=== PATIENT | male | born 1990 ===

== ENCOUNTER 2019-05-19 21:16 | Emergency (ER) | payer SELFPAY ==
[2019-05-19] MEDS ORDERED: Sodium Chloride 0.9% 2.5 ML Syringe FLUSH PRN (21:33)
[2019-05-19] MEDS ORDERED: Albuterol/Ipratropium 3.0-0.5 MG/3 ML Neb Soln NEB ONE ×2 (21:33→23:04)
[2019-05-19] MEDS ORDERED: Sodium Chloride 0.9% 10 ML Syringe FLUSH PRN (21:33)
[2019-05-19] MEDS ORDERED: methylPREDNISolone Sodium Succinate 125 MG/2 ML SDV IVPUSH ONE (21:33)
--- NOTE | 2019-05-19 21:37 | EDM.PDOC ---
ED HPI GENERAL MEDICAL PROBLEM - General Chief Complaint: Respiratory Problem Stated Complaint: ASTIMA ATTACK Time Seen by Provider: 05/19/19 21:27 - History of Present Illness INITIAL COMMENTS - FREE TEXT/NARRATIVE: HISTORY AND PHYSICAL: History of present illness: The patient is a 29-year-old male with a known history of asthma who says his asthma has been doing much better since he has been taking better care of himself and he is plugged in with primary care here and presents with 2 days of asthma exacerbation. Patient has albuterol nebs at home and a rescue inhaler and says that it is not been working and he has not had flu symptoms such as fever or productive cough vomiting or diarrhea. He does not have a sore throat and he did not get his influenza shot this year. He is eating and drinking normally and he called EMS because he felt more short of breath and wanted evaluation. He received a DuoNeb in route and says that that definitely helped more than the nebs he has at home. He has no chest pain currently Review of systems: As per history of present illness and below otherwise all systems reviewed and negative. Past medical history: As per history of present illness and as reviewed below otherwise noncontributory. Surgical history: As per history of present illness and as reviewed below otherwise noncontributory. Social history: No reported history of drug or alcohol abuse. Family history: As per history of present illness and as reviewed below otherwise noncontributory. Physical exam: General: Well-developed well-nourished mildly overweight man who is speaking clearly and easily in the ED without breathlessness and vital signs are noted by me HEENT: Atraumatic, normocephalic, pupils reactive, negative for conjunctival pallor or scleral icterus, mucous membranes moist, throat clear, neck supple, nontender, trachea midline. Lungs: Diminished breath sounds at bilateral bases and scattered wheezing and rhonchi throughout all lung frankel but no work of breathing or stridor breath sounds equal bilaterally, chest nontender. Heart: S1S2, regular, rhythm no overt murmurs Abdomen: Soft, nondistended, nontender. Negative for masses or hepatosplenomegaly. Negative for costovertebral tenderness. Pelvis: Stable nontender. Genitourinary: Deferred. Rectal: Deferred. Extremities: Atraumatic, negative for cords or calf pain. Neurovascular unremarkable. No pedal edema or leg asymmetry Neuro: Awake, alert, oriented. Cranial nerves II through XII unremarkable. Cerebellum unremarkable. Motor and sensory unremarkable throughout. Exam nonfocal. Diagnostics: Influenza chest x-ray Therapeutics: IV fluids DuoNeb Solu-Medrol Discussed with the patient his blood pressure and need to follow-up with his primary care physician for evaluation of that further and he states understanding It has improved since he has been here but it is still borderline. On reevaluation the patient is moving air better and not wheezing but still is somewhat tight but says he feels better and would like to go home. I will give him another nebulizer before home. He only has the albuterol for his machine at home so I will give him some duo nebs to utilize as well as prednisone and stressed the importance of follow-up and he states understanding. Impression: Acute asthma exacerbation Definitive disposition and diagnosis as appropriate pending reevaluation and review of above. Chest Pain Score (Numeric/FACES): 3 - Related Data Allergies Allergy/AdvReac Type Severity Reaction Status Date / Time No Known Allergies Allergy Verified 05/19/19 21:22 Home Meds: Home Meds Albuterol Sulfate [Albuterol Sulfate Hfa] 2 puff INH ASDIRECTED 05/19/19 [ History] Albuterol [Proventil Neb Soln] 3 ml NEB ASDIRECTED 05/19/19 [History] Fluticasone/Salmeterol [Advair 250-50 Diskus] 1 puff INH DAILY 05/19/19 [History ] Past Medical History Respiratory History: Reports: Asthma - Infectious Disease History Infectious Disease History: Reports: Chicken Pox Social & Family History - Family History Family Medical History: Noncontributory - Tobacco Use Smoking Status *Q: Former Smoker Used Tobacco, but Quit: Yes Month/Year Tobacco Last Used: 2018 - Caffeine Use Caffeine Use: Reports: Energy Drinks - Recreational Drug Use Recreational Drug Use: No ED ROS GENERAL - Review of Systems Review Of Systems: Comprehensive ROS is negative, except as noted in HPI. ED EXAM, GENERAL - Physical Exam Exam: See Below (see dictattion) Course - Vital Signs Last Recorded V/S: Last Vital Signs Temp 36.7 C 05/19/19 21:24 Pulse 84 05/19/19 21:50 Resp 18 05/19/19 21:50 BP 134/96 H 05/19/19 21:50 Pulse Ox 98 05/19/19 21:50 - Orders/Labs/Meds Orders: Active Orders 24 hr Category Date Time Status EKG 12 Lead [EKG Documentation Completion] [RC] STAT Care 05/19/19 21:19 Active RT Aerosol Therapy [RC] ASDIRECTED Care 05/19/19 23:04 Ordered Chest 2V [CR] Stat Exams 05/19/19 21:33 Taken Albuterol/Ipratropium [DuoNeb 3.0-0.5 MG/3 ML] Med 05/19/19 23:04 Once 3 ml NEB ONETIME ONE Sodium Chloride 0.9% [Normal Saline] 500 ml Med 05/19/19 21:45 Active IV STAT Sodium Chloride 0.9% [Saline Flush] Med 05/19/19 21:33 Active 10 ml FLUSH ASDIRECTED PRN Sodium Chloride 0.9% [Saline Flush] Med 05/19/19 21:33 Active 2.5 ml FLUSH ASDIRECTED PRN Saline Lock Insert [OM.PC] Stat Oth 05/19/19 21:33 Ordered Medication Orders Sodium Chloride (Normal Saline) 500 mls @ 999 mls/hr IV STAT WAYNE Last Admin: 05/19/19 21:44 Dose: 999 mls/hr Sodium Chloride (Saline Flush) 10 ml FLUSH ASDIRECTED PRN PRN Reason: Keep Vein Open Sodium Chloride (Saline Flush) 2.5 ml FLUSH ASDIRECTED PRN PRN Reason: Keep Vein Open Meds: Medications Generic Name Dose Route Start Last Admin Trade Name Freq PRN Reason Stop Dose Admin Sodium Chloride 500 mls @ 999 mls/hr 05/19/19 21:45 05/19/19 21:44 Normal Saline IV 999 mls/hr STAT WAYNE Administration Sodium Chloride 10 ml 05/19/19 21:33 Saline Flush FLUSH ASDIRECTED PRN Keep Vein Open Sodium Chloride 2.5 ml 05/19/19 21:33 Saline Flush FLUSH ASDIRECTED PRN Keep Vein Open Discontinued Medications Generic Name Dose Route Start Last Admin Trade Name Freq PRN Reason Stop Dose Admin Albuterol/Ipratropium 3 ml 05/19/19 21:33 05/19/19 21:44 Duoneb 3.0-0.5 Mg/3 Ml NEB 05/19/19 21:34 3 ml ONETIME ONE Administration Methylprednisolone Sodium Succinate 125 mg 05/19/19 21:33 05/19/19 21:44 Solu-Medrol IVPUSH 05/19/19 21:34 125 mg ONETIME ONE Administration Departure - Departure Time of Disposition: 23:05 Disposition: Home, Self-Care 01 Condition: Good Clinical Impression: Acute asthma - Discharge Information Referrals: PCP,None [Primary Care Provider] - Forms: ED Department Discharge Additional Instructions: The following information is given to patients seen in the emergency department who are being discharged to home. This information is to outline your options for follow-up care. We provide all patients seen in our emergency department with a follow-up referral. The need for follow-up, as well as the timing and circumstances, are variable depending upon the specifics of your emergency department visit. If you don't have a primary care physician on staff, we will provide you with a referral. We always advise you to contact your personal physician following an emergency department visit to inform them of the circumstance of the visit and for follow-up with them and/or the need for any referrals to a consulting specialist. The emergency department will also refer you to a specialist when appropriate. This referral assures that you have the opportunity for followup care with a specialist. All of these measure are taken in an effort to provide you with optimal care, which includes your followup. Under all circumstances we always encourage you to contact your private physician who remains a resource for coordinating your care. When calling for followup care, please make the office aware that this follow-up is from your recent emergency room visit. If for any reason you are refused follow-up, please contact the [facility] emergency department at and ask to speak to the emergency department charge nurse. [facility]- [place] [address] Push hydration and use your nebulizer at home every 4-6 hours for the next 24 hours and make sure to refill your inhaler prescriptions to you have a rescue inhaler when you are not at home. Start the prednisone you have been prescribed tomorrow as you received a dose here in the ED 3 or IV. Please call and schedule a follow-up appointment with your provider in the clinic or 1 of ours and return to ER as needed and as discussed Sepsis Event Note - Evaluation Sepsis Screening Result: No Definite Risk - Focused Exam Vital Signs: Vital Signs Temp Pulse Resp BP Pulse Ox 05/19/19 21:50 84 18 134/96 H 98 05/19/19 21:24 36.7 C 98 20 181/119 H 99 Date Exam was Performed: 05/19/19 Time Exam was Performed: 23:04 - My Orders Last 24 Hours: My Active Orders 05/19/19 21:19 EKG 12 Lead [EKG Documentation Completion] [RC] STAT 05/19/19 21:33 Chest 2V [CR] Stat Sodium Chloride 0.9% [Saline Flush] 10 ml FLUSH ASDIRECTED PRN Sodium Chloride 0.9% [Saline Flush] 2.5 ml FLUSH ASDIRECTED PRN Saline Lock Insert [OM.PC] Stat 05/19/19 21:45 Sodium Chloride 0.9% [Normal Saline] 500 ml IV STAT 05/19/19 23:04 RT Aerosol Therapy [RC] ASDIRECTED Albuterol/Ipratropium [DuoNeb 3.0-0.5 MG/3 ML] 3 ml NEB ONETIME ONE - Assessment/Plan Last 24 Hours: My Active Orders 05/19/19 21:19 EKG 12 Lead [EKG Documentation Completion] [RC] STAT 05/19/19 21:33 Chest 2V [CR] Stat Sodium Chloride 0.9% [Saline Flush] 10 ml FLUSH ASDIRECTED PRN Sodium Chloride 0.9% [Saline Flush] 2.5 ml FLUSH ASDIRECTED PRN Saline Lock Insert [OM.PC] Stat 05/19/19 21:45 Sodium Chloride 0.9% [Normal Saline] 500 ml IV STAT 05/19/19 23:04 RT Aerosol Therapy [RC] ASDIRECTED Albuterol/Ipratropium [DuoNeb 3.0-0.5 MG/3 ML] 3 ml NEB ONETIME ONE
[2019-05-19] MEDS ORDERED: Sodium Chloride 0.9% 500 ML IV SCH (21:45)
--- NOTE | 2019-05-19 23:11 | CR ---
INDICATION: NO COMPARISONS, 4 IMAGES. ASTHMA. TECHNIQUE: Chest 2 views. COMPARISON: None. FINDINGS: Cardiovascular and mediastinum: Heart size and vasculature are normal in caliber and appearance. Mediastinum is within normal limits. Lungs and pleural spaces: Lungs are clear. No sign of infiltrate or mass. No sign of pleural effusion. No pneumothorax. Bones and soft tissues: No significant findings. IMPRESSION: Unremarkable chest. Dictated by: Chivo Mendoza MD @ 05/19/2019 23:09:08 (Electronically Signed)
== END 2019-05-19 23:25 | disposition home or self-care (01) ==
LOC: MW.ED 21:16
DX: J45.901 Unspecified asthma with (acute) exacerbation (principal); Z87.891 Personal history of nicotine dependence
CPT/HCPCS: 71046; 87804; 93005; 94640; 96361; 96374; 99285; J2930; J7040; J7620-GY